=== PATIENT | female | born 1985 | race Caucasian/White ===

== ENCOUNTER 2016-12-02 16:08 | Inpatient (IN) | payer OTHER ==
[2016-12-02] MEDS ORDERED: PEPCID IV PRN (20:58)
[2016-12-02] MEDS ORDERED: TYLENOL PO PRN (20:58)
[2016-12-02] MEDS ORDERED: BRETHINE SUBQ PRN (20:58)
[2016-12-02] MEDS ORDERED: AMBIEN PO PRN (20:58)
[2016-12-02] MEDS ORDERED: ZOFRAN IV PRN (20:58)
[2016-12-02] MEDS ORDERED: KEFZOL 1 GM/D5W 50 ML IV PRN (20:58)
[2016-12-02] MEDS ORDERED: STADOL IV PRN ×2 (20:58)
[2016-12-02] MEDS ORDERED: PEPCID PO PRN (20:58)
[2016-12-02] MEDS ORDERED: LR 1,000 ML IV SCH (21:00)
[2016-12-02 22:36] LABS: MANUAL DIFF NEEDED? NO
[2016-12-02 22:41] LABS: BASO% 0.1 % (0.0-0.8); EOS# 0.17 X1000 (0.0-0.7); EOS% 1.2 % (0.0-10.0); HEMATOCRIT 36.3 % (37.0-47.0); HEMOGLOBIN 12.3 g/dL (12.0-16.0); IMM GRAN# 0.07 X1000 (0.0-0.04); IMM GRAN% 0.5 % (0.0-0.5); LYMPH# 2.79 X1000 (1.2-3.4); LYMPH% 19.2 % (20.5-51.1); MCH 31.2 PG (27-31); MCHC 33.9 g/dL (33-37); MCV 92.1 FL (81-99); MONO# 0.82 X1000 (0.11-0.59); MONO% 5.6 % (1.7-9.3); MPV 10.9 FL (7.4-10.4); NEUT% 73.4 % (42.2-75.2); PLT 292 X1000 (130-400); RBC 3.94 XMIL (4.2-5.4)
[2016-12-02] MEDS ORDERED: CYTOTEC PO ONE (23:00)
[2016-12-03 01:24] LABS: URINE SOURCE VOIDED
[2016-12-03 01:58] LABS: UR AMPHETAMINES QUAL NONE DETECTED (NONE DETECT); UR BARBITUATES QUAL NONE DETECTED (NONE DETECT); UR BENZODIAZEPIN QUAL NONE DETECTED (NONE DETECT); UR CANNABINOIDS QUAL NONE DETECTED (NONE DETECT); UR COCAINE QUAL NONE DETECTED (NONE DETECT); UR MDMA QUAL NONE DETECTED (NONE DETECT); UR METHADONE QUAL NONE DETECTED (NONE DETECT); UR METHAMPHETAMINE QUAL PRESUMPTIVE POSITIVE (NONE DETECT); UR OPIATES QUAL NONE DETECTED (NONE DETECT); UR OXYCODONE QUAL NONE DETECTED (NONE DETECT); UR PCP QUAL NONE DETECTED (NONE DETECT); UR TCA QUAL PRESUMPTIVE POSITIVE (NONE DETECT)
[2016-12-03 01:59] LABS: BILIRUBIN URINE NEGATIVE (NEGATIVE); CLARITY CLEAR (CLEAR); COLOR YELLOW; GLUCOSE URINE NEGATIVE (NEGATIVE)
[2016-12-03 02:37] LABS: BLOOD URINE 2+ (NEGATIVE); LEUKOCYTES URINE TRACE (NEGATIVE); NITRITE URINE NEGATIVE (NEGATIVE); PROTEIN URINE 1+(30 mg/dL) mg/dL (NEGATIVE); UROBILINOGEN URINE 1+(1 mg/dL)
[2016-12-03] MEDS: CYTOTEC PO SCH ×2 (03:44→08:14)
[2016-12-03] MEDS: STADOL IV PRN ×2 (03:48→06:30)
[2016-12-03] MEDS ORDERED: PITOCIN 30 UNITS/LR 500 ML IV SCH (07:00)
[2016-12-03] MEDS ORDERED: FENTANYL-BUPIV-NS 2 MCG-0.1% 200 ML EPIDURAL PRN (07:09)
[2016-12-03] MEDS ORDERED: MARCAINE 0.25% PF INJ ONE (07:15)
[2016-12-03] MEDS ORDERED: XYLOCAINE-MPF 1% 10 ML ONE (07:19)
[2016-12-03] MEDS ORDERED: NESACAINE-MPF 3% ONE ×2 (08:53→10:28)
[2016-12-03] MEDS ORDERED: FENTANYL ONE ×2 (09:35→10:53)
[2016-12-03] MEDS ORDERED: SENSORCAINE-MPF 0.5%/EPI 1:200,000 ONE (10:28)
[2016-12-03] MEDS ORDERED: NORCO-5 PO PRN (11:42)
[2016-12-03] MEDS ORDERED: XYLOCAINE-MPF 1% INJ PRN (11:42)
[2016-12-03] MEDS ORDERED: BOOSTRIX VACCINE IM ONE (11:42)
[2016-12-03] MEDS ORDERED: PITOCIN IM PRN (11:42)
[2016-12-03] MEDS ORDERED: PERCOCET-5 PO PRN (11:42)
[2016-12-03] MEDS ORDERED: NORCO-10 PO PRN (11:42)
[2016-12-03] MEDS ORDERED: HYDROXYZINE PO PRN (11:42)
[2016-12-03] MEDS ORDERED: BENADRYL PO PRN (11:42)
[2016-12-03] MEDS ORDERED: HYDROXYZINE IM PRN (11:42)
[2016-12-03] MEDS ORDERED: PERI MEDS (DERMOPLAST/NUPERCAINAL/TUCKS) MISC PRN (11:42)
[2016-12-03] MEDS ORDERED: M-M-R II VACCINE SUBQ ONE (11:42)
[2016-12-03] MEDS ORDERED: CYTOTEC PO PRN (11:42)
[2016-12-03] MEDS ORDERED: AMBIEN PO PRN (11:42)
[2016-12-03] MEDS ORDERED: MINERAL OIL MISC PRN (11:42)
[2016-12-03] MEDS ORDERED: BENADRYL IV PRN (11:42)
[2016-12-03] MEDS ORDERED: PITOCIN 30 UNITS/LR 500 ML IV ONE (11:42)
[2016-12-03] MEDS ORDERED: PITOCIN 20 UNITS/LR 1,000 ML IV SCH (11:45)
[2016-12-03] MEDS ORDERED: PITOCIN 20 UNITS/LR 1,000 ML ONE (11:55)
[2016-12-03] MEDS ORDERED: SENSORCAINE 0.5%-EPI 1:200,000 INJ ONE (12:36)
--- NOTE | 2016-12-03 14:40 | OPERATIVE NOTE ---
PROCEDURE DATE: 12/03/2016 DELIVERY PHYSICIAN: Chiki Paredes MD TYPE OF DELIVERY: Spontaneous controlled vaginal delivery. ANESTHESIA: Epidural. FINDINGS: At 11:26, a 7 pound 9 ounce female infant was delivered in occiput anterior presentation. Apgars were 9 at 1 minute and 10 at 5 minutes. SUMMARY: Corinne Garcia is a 31-year-old, 3, para 2-0-0-2, who is at term gestation. Her blood type is A positive. Rubella immune. Hepatitis B surface antigen, HIV, and group B strep is negative. She was brought into Labor and Delivery last night for induction of labor. Cytotec was given. This morning, she was started on IV Pitocin. Membranes spontaneously ruptured. She received an epidural for labor pain management. She progressed to labor without signs of stress or dystocia. Ms. Garcia became complete and began pushing. She rapidly crowned. At that point, she was placed in the dorsal lithotomy position. The perineum was prepped draped in the usual fashion. Spontaneous controlled vaginal delivery occurred. Once the 's head was delivered, the oropharynx was bulb suctioned. The shoulders and body delivered without complications. Cord was clamped and cut. The was handed to the nurses for further care and evaluation. Cord blood was obtained. Placenta was spontaneously delivered. It was intact. There were no cervical lacerations. There was a right labial laceration, which was oversewn using 3-0 Vicryl suture. Blood loss approximately 150 mL. There were no complications. The patient remained in the LDR recovering without difficulty.
[2016-12-03] MEDS: MOTRIN PO PRN (17:06)
[2016-12-03] MEDS: PERCOCET-10 PO PRN ×2 (17:07→20:30)
[2016-12-03] MEDS: PERICOLACE PO SCH (20:30)
[2016-12-04] MEDS: PERCOCET-10 PO PRN ×2 (04:46→21:12)
[2016-12-04 06:37] LABS: HEMATOCRIT 36.2 % (37.0-47.0); HEMOGLOBIN 11.4 g/dL (12.0-16.0); MCH 27.7 PG (27-31); MCHC 31.5 g/dL (33-37); MCV 87.9 FL (81-99); MPV 10.6 FL (7.4-10.4); RBC 4.12 XMIL (4.2-5.4)
[2016-12-04] MEDS: PRECARE PO SCH (08:37)
[2016-12-04] MEDS: MOTRIN PO PRN (10:06)
[2016-12-04] MEDS: PERICOLACE PO SCH (19:42)
[2016-12-05] MEDS: PRECARE PO SCH (08:24)
[2016-12-05] MEDS: MOTRIN PO PRN (08:24)
[2016-12-05] MEDS: PERCOCET-10 PO PRN (08:25)
[2016-12-05 08:45] VITALS: BP 121/72
== END 2016-12-05 13:40 | disposition home or self-care (01) | DRG 775 ==
LOC: P.LD 20:15 → P.WC 12-03 14:18
PROVIDERS: ADMIT Obstetrics & Gynecology; ATTEND Obstetrics & Gynecology
PROC: 0HQ9XZZ Repair Perineum Skin, External Approach (ICD-10-PCS; 2016-12-03)
PROC: 10E0XZZ Delivery of Products of Conception, External Approach (ICD-10-PCS; principal; 2016-12-03 08:00)
DX: O70.0 First degree perineal laceration during delivery (principal); Z37.0 Single live birth; Z3A.39 39 weeks gestation of pregnancy
CPT/HCPCS: 59025; 80305; 81003; 85025; 85027; 86592; J0595; J2400; J2405; J2590; J3010; J7120; S0020